=== PATIENT | male | born 1940 | race Caucasian/White ===

== ENCOUNTER 2016-05-08 12:33 | Observation (INO) | payer MEDICARE, OTHER ==
[2016-05-08] MEDS ORDERED: CARDIZEM CD240 M1 PO (13:34)
[2016-05-08] MEDS ORDERED: REVLIMID25 M1 PO (13:34)
[2016-05-08] MEDS ORDERED: COUMADIN5 M2 PO (13:34)
[2016-05-08] MEDS ORDERED: PROPAFENONE HC PO (13:35)
[2016-05-08] MEDS ORDERED: SERTRALINE HCL50 M4 PO (13:35)
[2016-05-08] MEDS ORDERED: SPIRIVA18 MC1 PO (13:36)
[2016-05-08] MEDS ORDERED: DEXAMETHASONE4 M1 PO (13:36)
[2016-05-08] MEDS ORDERED: OXYCONTIN10 M2 PO (13:37)
[2016-05-08 23:39] LABS: URINE LEUKOCYTE ESTERASE NEGATIVE (NEG); URINE PROTEIN MODERATE (NEG); URINE SPECIFIC GRAVITY 1.025 (1.003-1.030)
[2016-05-08 23:41] LABS: URINE APPEARANCE HAZY; URINE BILIRUBIN NEGATIVE (NEG); URINE BLOOD LARGE (NEG); URINE COLOR YELLOW; URINE GLUCOSE (UA) SMALL (NEG); URINE KETONE NEGATIVE (NEG); URINE NITRITE NEGATIVE (NEG)
[2016-05-08 23:50] LABS: URINE RBC 30-40 /[HPF] (0-5); URINE WBC 0-1 /[HPF] (0-5)
[2016-05-08 23:51] LABS: URINE BACTERIA 2+
[2016-05-08 23:55] LABS: URINE TOTAL PROTEIN-RANDOM 29.8 mg/dl (<11.8)
[2016-05-09 01:29] LABS: URINE PRT/CR RATIO 0.19 Ratio (0.0-0.20)
[2016-05-09 06:02] LABS: BLOOD UREA NITROGEN 31 mg/dl (6-24); CARBON DIOXIDE-VENOUS 26 mmol/L (22-32); CHLORIDE 106 mmol/l (96-110); CHOLESTEROL 156 mg/dl (120-200); CREATININE 0.81 mg/dl (0.60-1.30); GLUCOSE 101 mg/dL (70-110); HDL CHOLESTEROL 35 mg/dl (40-60); LDL CHOLESTEROL 81 mg/dl (0-99); SODIUM 139 mmol/L (135-145); VLDL 40 mg/dl (0-30); eGFR VALUE FOR BLACK >90 mL/Min
[2016-05-09 06:04] LABS: ANION GAP 11 mmol/L (0-20); POTASSIUM 4.1 mmol/L (3.7-5.1); TRIGLYCERIDES 201 mg/dl (<149)
[2016-05-09] MEDS ORDERED: MORPHINE SULFAT15 MG PO (14:56)
[2016-05-09] MEDS ORDERED: ZOVIRAX200 M1 PO (14:56)
[2016-05-09 14:57] LABS: URINE CREATININE-RANDOM 191 mg/dl (30-125); URINE SODIUM-RANDOM 20 mmol/L (20-110)
[2016-05-09] MEDS ORDERED: LANOXIN125 MC3 PO (14:57)
[2016-05-09] MEDS ORDERED: LOPRESSOR50 M1 PO (14:57)
[2016-05-09] MEDS ORDERED: ASPIRIN81 M1 PO (15:13)
[2016-05-09] MEDS ORDERED: OXYCONTIN10 M2 PO (15:13)
== END 2016-05-09 16:15 ==
LOC: PCUA 12:33
PROVIDERS: Internal Medicine Nephrology; Physician Assistant; ADMIT Internal Medicine Cardiovascular Disease
DX: I20.9 Angina pectoris, unspecified (principal); I48.2 Chronic atrial fibrillation; N17.9 Acute kidney failure, unspecified; C90.00 Multiple myeloma not having achieved remission; J44.9 Chronic obstructive pulmonary disease, unspecified; F32.9 Major depressive disorder, single episode, unspecified; G47.30 Sleep apnea, unspecified; I50.32 Chronic diastolic (congestive) heart failure; Z79.01 Long term (current) use of anticoagulants; Z79.52 Long term (current) use of systemic steroids; Z79.899 Other long term (current) drug therapy; Z88.8 Allergy status to other drugs, medicaments and biological substances; Z87.891 Personal history of nicotine dependence; Z98.890 Other specified postprocedural states
CPT/HCPCS: A9500; G0378; J1650; J2785